=== PATIENT | male | born 1990 | race African-American/Black ===

== ENCOUNTER 2016-08-03 22:18 | Emergency (ER) | payer SELFPAY ==
[2016-08-03] MEDS ORDERED: NO HOME MEDICATION XX (22:46)
[2016-08-03] MEDS ORDERED: CYCLOBENZAPRINE10 M1 PO (23:01)
== END 2016-08-03 23:11 ==
LOC: EDMED 22:18
DX: M25.512 Pain in left shoulder (principal); M62.838 Other muscle spasm